=== PATIENT | male | born 1960 | race Caucasian/White ===

== ENCOUNTER 2016-08-13 05:55 | Emergency (ER) | payer SELFPAY ==
[~2016-08-13] VITALS: Ht 175.3 cm; Wt 86.0 kg
[~2016-08-13 05:55] MED LIST: INSULIN
[2016-08-13] MEDS ORDERED: METO25TA6 PO (06:03)
[2016-08-13] MEDS ORDERED: CLONIDINE 0.1MG TABLET PO ONE (08:00)
[2016-08-13] MEDS ORDERED: TETANUS, DIPHTHERIA, PERTUSSIS VAC/PF 0.5ML (>7YR OLD) IM ONE (08:30)
[2016-08-13] MEDS ORDERED: MORPHINE SULFATE 10 MG/ML CPJ IM ONE (08:30)
[2016-08-13] MEDS ORDERED: LIDOCAINE HCL 1% 20ML VIAL (Pyxis) INJ MC ONE (08:30)
[2016-08-13] MEDS ORDERED: ONDANSETRON HCL 4MG/2ML VIAL IM ONE (08:30)
[2016-08-13] MEDS ORDERED: BACITRACIN ZINC OINT UDPKT TOP ONE (08:30)
[2016-08-13] MEDS ORDERED: AMPICILLIN SOD/SULBACTAM NA 3 G in SODIUM CHLORIDE 0.9% 100 ML IV SCH (10:00)
[2016-08-13 10:05] LABS: BASOPHILS % 0.5 % (0.0-2.0); EOSINOPHILS % 0.1 % (0.0-5.0); HEMOGLOBIN. 10.4 g/dL (14.0-18.0); LYMPHOCYTES % 9.8 % (20.0-50.0); MEAN CORPUSCULAR HEMOGLOBIN 31.2 pg (28.0-32.0); MEAN CORPUSCULAR HGB CONC 34.6 g/dL (31.0-37.0); MEAN CORPUSCULAR VOLUME 90.2 fL (80.0-94.0); MEAN PLATELET VOLUME 7.3 fl (7.4-10.4); MONOCYTES % 4.1 % (2.0-8.0); NEUTROPHILS % 85.5 % (40.0-76.0); PLATELET 250 x1000/uL (130-400); RED BLOOD CELL COUNT 3.33 mill/uL (4.7-6.1); RED CELL DISTRIBUTION WIDTH 13.2 % (11.6-14.6); WHITE BLOOD COUNT 9.7 x1000/uL (4.5-11.0)
[2016-08-13 10:12] LABS: ALBUMIN 3.2 g/dL (3.4-5.0); ANION GAP 13; CALCIUM 8.5 mg/dL (8.5-10.1); CARBON DIOXIDE 25 mEq/L (21-32); CHLORIDE 107 mEq/L (98-107); INDEX HEMOLYSI 1 (1-3); INDEX ICTERIC 1 (1-4); INDEX LIPEMIC 1 (1-3); PROTHROMBIN TIME 10.3 sec
[2016-08-13 10:19] LABS: ALANINE AMINOTRANSFERASE 52 IU/L (13-61); ETHANOL BLOOD < 10 mg/dL; UREA NITROGEN BLOOD 16 mg/dL (7-21); eGFR > 60 mL/min (>60)
[2016-08-13] MEDS ORDERED: ONDANSETRON HCL 4MG/2ML VIAL IV ONE (11:15)
[2016-08-13] MEDS ORDERED: MORPHINE SULFATE 2 MG/ML CPJ (NOT FOR IM USE) IV ONE (11:15)
[2016-08-13 15:13] VITALS: BP 163/77
== END 2016-08-13 15:41 | disposition short-term general hospital (02) ==
LOC: ER 05:55
DX: S02.0XXA Fracture of vault of skull, initial encounter for closed fracture (principal); S02.82XB Fracture of other specified skull and facial bones, left side, initial encounter for open fracture; S02.19XA Other fracture of base of skull, initial encounter for closed fracture; M54.2 Cervicalgia; I10 Essential (primary) hypertension; H53.8 Other visual disturbances; E11.9 Type 2 diabetes mellitus without complications; Z79.4 Long term (current) use of insulin; Y08.89XA Assault by other specified means, initial encounter; Y93.89 Activity, other specified; Y92.89 Other specified places as the place of occurrence of the external cause; Y99.8 Other external cause status
CPT/HCPCS: 36415; 70450; 70486; 72125; 80053; 85025; 85610; 87040; 90471; 90715; 96365; 96375; 96376; 99285; G0482; J0295; J2270; J2405; X7700; Z7610; J3490; J7050; L0172